=== PATIENT | female | born 1995 | race Caucasian/White ===

== ENCOUNTER 2019-04-12 22:40 | Emergency (ER) | payer OTHER ==
[2019-04-12 22:44] VITALS: BP 120/63; PULSE 92; TEMP 98.2; BMI 35.6
[2019-04-13] MEDS ORDERED: ACETAMINOPHEN 325 MG TABLET (FP) PO ONE (00:46)
[2019-04-13] MEDS ORDERED: ACETAMINOPHEN 325 MG TABLET (FP) ONE (01:36)
--- NOTE | 2019-04-13 02:11 | PDOC ---
Documentation entered by Kesha Glover SCRIBE, acting as scribe for Aileen Stein MD. Aileen Stein MD: This documentation has been prepared by the scribeAdalberto Maria, SCRIBE, under my direction and personally reviewed by me in its entirety. I confirm that the documentation accurately reflects all work, treatment, procedures, and medical decision making performed by me. History of Present Illness - General Chief Complaint: Cold Symptoms Stated Complaint: FEVER History Source: Patient Exam Limitations: No Limitations - History of Present Illness Initial Comments: 04/13/19 01:06 Patient is a 24 year old, 24 weeks female with no significant pmh who presents to the ED with fever and congestion. Patient states she has a non productive cough, congestion, fever and ear pain since yesterday. Patient also notes that she has difficulty swallowing. Denies abdominal pain, nausea, vomiting, diarrhea, constipation. Allergies: NKA Past History - Past Medical History Allergies/Adverse Reactions: Allergies Allergy/AdvReac Type Severity Reaction Status Date / Time No Known Allergies Allergy Verified 04/12/19 22:44 COPD: No - Psycho Social/Smoking Cessation Hx Smoking History: Never smoked Review of Systems - Review of Systems Comments:: 04/13/19 01:06 GENERAL/CONSTITUTIONAL: + fever. No chills. No weakness. HEAD, EYES, EARS, NOSE AND THROAT: +ear pain. +throat pain when swallowing. No change in vision. No ear discharge. CARDIOVASCULAR: No chest pain or shortness of breath. RESPIRATORY:+ cough. No wheezing, or hemoptysis. GASTROINTESTINAL: No nausea, vomiting, diarrhea or constipation. GENITOURINARY: No dysuria, frequency, or change in urination. MUSCULOSKELETAL: No joint or muscle swelling or pain. No neck or back pain. SKIN: No rash NEUROLOGIC: No headache, vertigo, loss of consciousness, or change in strength/ sensation. ENDOCRINE: No increased thirst. No abnormal weight change. HEMATOLOGIC/LYMPHATIC: No anemia, easy bleeding, or history of blood clots. ALLERGIC/IMMUNOLOGIC: No hives or skin allergy. *Physical Exam - Vital Signs Last Vital Signs Temp Pulse Resp BP Pulse Ox 98.2 F 92 H 18 120/63 99 04/12/19 22:41 04/12/19 22:41 04/12/19 22:41 04/12/19 22:41 04/12/19 22:41 - Physical Exam Comments: 04/13/19 01:06 GENERAL:+ febrial. Awake, alert, and fully oriented, in no acute distress HEAD: No signs of trauma EYES: PERRLA, EOMI, sclera anicteric, conjunctiva clear ENT:+ nasal congestion. +viral stippling. Auricles normal inspection, hearing grossly normal, nares patent, oropharynx clear without exudates. Moist mucosa NECK: Normal ROM, supple, no lymphadenopathy, JVD, or masses LUNGS: Breath sounds equal, clear to auscultation bilaterally. No wheezes, and no crackles HEART: Regular rate and rhythm, normal S1 and S2, no murmurs, rubs or gallops ABDOMEN: Soft, nontender, normoactive bowel sounds. No guarding, no rebound. No masses EXTREMITIES: Normal range of motion, no edema. No clubbing or cyanosis. No cords, erythema, or tenderness NEUROLOGICAL: Cranial nerves II through XII grossly intact. Normal speech, normal gait SKIN: Warm, Dry, normal turgor, no rashes or lesions noted. Medical Decision Making - Medical Decision Making 04/13/19 00:58 Pt likely has a viral syndrome; SHe comes with fever and congestion. She has no other complaints She is in her 2nd trimester of She has no vag bleed and no dysuria and no N/V/D no other complaints. 04/13/19 05:50 Flu and strep negative; this is simply a viral illness; common cold. Pt will be discharged and asked to return if she gets worse. Discharge - Discharge Information Problems reviewed: Yes Clinical Impression/Diagnosis: Viral respiratory illness Condition: Stable Disposition: HOME - Admission No - Follow up/Referral - Patient Discharge Instructions Patient Printed Discharge Instructions: DI for Viral Upper Respiratory Infection -- Adult - Post Discharge Activity Work/Back to School Note: Back to Work
== END 2019-04-13 02:41 | disposition home or self-care (01) ==
LOC: JER 22:40
DX: O99.89 Other specified diseases and conditions complicating pregnancy, childbirth and the puerperium (principal); J06.9 Acute upper respiratory infection, unspecified; B97.89 Other viral agents as the cause of diseases classified elsewhere; Z3A.24 24 weeks gestation of pregnancy
CPT/HCPCS: 87070; 87804; 87880; 99282-25